=== PATIENT | male | born 1960 | race American Indian/Alaskan Native ===

== ENCOUNTER 2020-08-19 12:57 | Outpatient (CLI) | payer OTHER ==
--- NOTE | 2020-08-19 15:26 | XRay Report ---
BILATERAL KNEES, 7 VIEWS INDICATION: BILATERAL KNEE PAIN. COMPARISON: No relevant prior imaging study available. FINDINGS: At the left knee there is mild to moderate joint space narrowing and osteophyte formation at the medi al compartment. No significant joint space narrowing is seen on the right. No acute fracture is seen bilaterally. No joint effusion. No significant soft tissue swelling. IMPRESSION: 1. No acute findings. Signer Name: Abdi Foreman MD Signed: 08/19/2020 3:21 PM Workstation Name: [id number]
== END 2020-08-19 12:58 | disposition home or self-care (01) ==
LOC: SPVIMAG 12:57
PROVIDERS: ATTEND Internal Medicine
DX: M25.762 Osteophyte, left knee (principal); M25.551 Pain in right hip; M25.562 Pain in left knee; M25.561 Pain in right knee